=== PATIENT | female | born 1970 | race Caucasian/White ===

== ENCOUNTER 2019-03-08 12:22 | Observation (INO) ==
[2019-03-08] MEDS ORDERED: ASPIRIN PO ONE (12:29)
--- NOTE | 2019-03-08 12:34 | EKG Report ---
Test Performed on : 03/08/2019 12:27:52 PM Test Reason : cp Blood Pressure : / mmHG Vent. Rate : 087 BPM Atrial Rate : 087 BPM P-R Int : 138 ms QRS Dur : 074 ms QT Int : 352 ms P-R-T Axes : 038 003 044 degrees QTc Int : 423 ms Normal sinus rhythm. Minimal voltage criteria for LVH, may be normal variant Cannot rule out Anterior infarct , age undetermined Abnormal ECG No previous ECGs available Unconfirmed Result
[2019-03-08 12:46] LABS: BASO# 0.03 X1000 (0.0-0.2); BASO% 0.4 % (0.0-0.8); EOS# 0.08 X1000 (0.0-0.7); EOS% 1.1 % (0.0-10.0); HEMATOCRIT 40.2 % (37.0-47.0); IMM GRAN# 0.02 X1000 (0.0-0.04); IMM GRAN% 0.3 % (0.0-0.5); LYMPH# 1.52 X1000 (1.2-3.4); LYMPH% 21.7 % (20.5-51.1); MCHC 32.3 g/dL (33-37); MCV 83.6 FL (81-99); MONO# 0.63 X1000 (0.11-0.59); MPV 10.6 FL (7.4-10.4); NEUT# 4.74 X1000 (1.4-6.5); NEUT% 67.5 % (42.2-75.2); PLT 240 X1000 (130-400); RBC 4.81 XMIL (4.2-5.4); RDW 14.2 % (11.5-14.5); WBC 7.02 X1000 (4.8-10.8)
[2019-03-08 12:58] LABS: INR 0.89; PROTIME 12.8 Seconds (11.0-16.0)
--- NOTE | 2019-03-08 12:58 | Diag Imaging Result Doc PS360 ---
EXAM: CHEST-2 VIEWS 03/08/2019 HISTORY: cp TECHNIQUE: PA and lateral chest COMMENT: There is no evidence of acute cardiac or pulmonary disease. There are no previous studies. IMPRESSION: No acute disease. Electronically signed by Shreyas Frazier 03/08/2019 12:56 PM
[2019-03-08 12:59] LABS: PTT 27.5 Seconds (22.3-41.8)
[2019-03-08 13:37] LABS: AGAP 13; ALB/GLOB RATIO 1.6; ALBUMIN 4.3 g/dL (3.5-5.0); ALKALINE PHOSPHATASE 131 U/L (32-104); BUN 14 mg/dL (8-22); CALCIUM 8.8 mg/dL (8.8-10.2); CHLORIDE 107 mmol/L (98-107); CK PROFILE 162 U/L (24-173); COSMO 278; CREATININE 0.9 mg/dL (0.5-0.9); ESTIMATED GFR > 60; GLUCOSE 91 mg/dL (70-104); GOT 15 U/L (10-30); GPT 16 U/L (10-36); SODIUM 139 mmol/L (136-145); TCO2 19 mmol/L (25-35); TOTAL BILIRUBIN 0.22 mg/dL (0.20-1.00)
[2019-03-08] MEDS ORDERED: NITROGLYCERIN TOP ONE (14:31)
--- NOTE | 2019-03-08 14:33 | PROVIDER DOCUMENTATION ---
This chart was entered by Jenise Kruger Scribe, acting as scribe for Jeff Romero MD. HPI-Chest Pain - General Chief Complaint: Chest Pain Stated Complaint: CP/SOB/L ARM PAIN Time Seen by Provider: 03/08/19 12:37 Source: patient, family Allergies/Adverse Reactions: Patient Allergies Allergy/AdvReac Type Severity Reaction Status Date / Time Penicillins Allergy Intermediate RASH Verified 03/08/19 14:31 adhesive Allergy Unknown Unknown Verified 03/08/19 14:31 codeine [Codeine] AdvReac Intermediate VOMITING Verified 03/08/19 14:31 Home Medications: Home Medication List Medication Instructions Recorded Confirmed Last Taken Type Dexlansoprazole [Dexilant] 60 mg PO DAILY 09/03/12 09/03/12 Unknown History Promethazine [Phenergan] 25 mg PO Q6H PRN PRN 09/03/12 09/03/12 Unknown History Vilazodone [Viibryd] 40 mg PO DAILY 09/03/12 09/03/12 Unknown History Bupropion S.r. [Wellbutrin Sr] 150 mg PO BID #60 tablet 09/08/12 Unknown Rx Vilazodone [Viibryd] 40 mg PO DAILY #30 tablet 09/08/12 Unknown Rx - History of Present Illness-CP Nature of Presenting Problem: 48 yowf presents to the ed with c/o chest tightness onset this am which radiates into left arm with left hand tingling. pt had mild nausea this am but denies vomiting. pt noted fatigue and that has been present 1 week. pt on exam is nontoxic in appearance Location: reports: substernal Chest Pain Radiation: reports: arms (left) Quality of Pain: reports: fullness, tightness Severity in ED: mild Onset/Duration: this morning Timing: still present, intermittent Context/Activities at Onset: reports: light activity Modifying Factors: improves with: nothing Associated Symptoms: reports: fatigue, nausea. denies: abdominal pain, diaphoresis, dizziness, vomiting Nitro Today/Relief: no nitro taken today Aspirin Treatment Today: 325 mg x 1, provided by ED Prior Chest Pain/Cardiac Workup: reports: no prior chest pain Similar Symptoms Previously?: No Recently Seen Here or By Another Healthcare Provider: No Review of Systems - Adult - REVIEW OF SYSTEMS - ADULT Constitutional: reports: see HPI, fatique. denies: chills, fever Eyes: reports: no symptoms reported Ears, Nose, Mouth & Throat: reports: no symptoms reported Cardiovascular: reports: see HPI, chest pain. denies: edema, palpitations, syncope Respiratory: reports: no symptoms reported Gastrointestinal: reports: see HPI, nausea. denies: abdominal pain, diarrhea, vomiting Genitourinary: reports: no symptoms reported Musculoskeletal: reports: see HPI, other (arm pain left). denies: back pain, neck pain Integumentary: reports: no symptoms reported Neurological: reports: see HPI, paresthesia (left hand). denies: diz ziness/vertigo, headache/migraines, seizure, slurred speech, syncope, tremors Psychiatric: reports: no symptoms reported Endocrine: reports: no symptoms reported Hematologic/Lymphatic: reports: no symptoms reported Allergic/Immunologic: reports: no symptoms reported All Other Systems: Reviewed and Negative Past History - Adult - PAST MEDICAL HISTORY-ADULT Review of Records: reports: Old Records Reviewed, Nursing Assessment Review, Medications Reviewed, Social history reviewed & non-contributory. Major Childhood Illnesses: reports: denies history Cardiovascular: reports: denies history Respiratory: reports: sleep apnea Gastrointestinal: reports: GERD Obstetrical/Gynecological: reports: denies history Genitourinary: reports: denies history Musculoskeletal: reports: denies history Neurological: reports: denies history Psychiatric: reports: anxiety, bipolar, depression Endocrine/Immune: reports: denies history Other Conditions: reports: denies history - PRIOR SURGERIES/PROCEDURES Surgical/Procedure History: reports: cholecystectomy, gastric bypass, other (cyst removed) - IMMUNIZATION STATUS Childhood Immunizations: See Nurse Assessment Flu Vaccine: See Nurse Assessment - FAMILY HISTORY Family History: reviewed, not pertinent - SOCIAL HISTORY Smoking: denies Substance Use: denies Alcohol Use Frequency: never Living Situation: family Physical Exam-General - PHYSICAL EXAM-ADULT Initial Vital Signs Reviewed: Yes - CONSTITUTIONAL General Appearance: appears well, alert, no apparent distress, obese - EYES Eyes: PERRL/EOMI, pink conjunctivae - HEAD, EARS, NOSE, MOUTH & THROAT HENMT: moist mucous membranes, normal ENT inspection - NECK Neck: non-tender, full range of motion, supple, normal inspection - RESPIRATORY Respiratory: chest non-tender, lungs clear, normal breath sounds, no pleuratic chest pain, no respiratory distress - CARDIOVASCULAR Cardiovascular: normal peripheral pulses, regular rate, rhythm - CHEST (BREASTS) Chest/Breast: no tenderness - GASTROINTESTINAL (ABDOMEN) Abdominal Exam: normal bowel sounds, non tender, soft - LYMPHATIC Lymphatic: no adenopathy - MUSCULOSKELETAL Back Exam: normal inspection, no CVA tenderness, no vertebral tenderness Extremity: normal range of motion, non-tender, normal gait, normal inspection, no pedal edema, no calf tenderness, normal capillary refill, pelvis stable - SKIN Integumentary: normal color, normal turgor, warm/dry - NEUROLOGIC Neurologic: grossly normal, no motor/sensory deficits - PSYCHIATRIC Psych/Mental Status: normal mood/affect, normal thought content, normal thought process, oriented x 3 - HEART Score HEART Score: History: Slightly Suspicious HEART Score: ECG: Non-Specific Repolarization Disturbance/LBBB/PM HEART Score: Age: 45-65 Years HEART Score: Risk Factors for Atherosclerotic Disease: 1 or 2 Risk Factors HEART Score: Troponin: < or = Normal Limit Total HEART Score:: 3 Progress - PLAN OF CARE/RESULTS Progress/Plan/Lab Results: Vital Signs - 8 hr 03/08/19 12:24 Temperature 98.4 F Pulse Rate 94 H Respiratory Rate 20 Blood Pressure 150/102 O2 Sat by Pulse Oximetry 100 Laboratory Results - last 24 hr 03/08/19 03/08/19 03/08/19 12:39 12:39 12:39 WBC 7.02 RBC 4.81 Hgb 13.0 Hct 40.2 MCV 83.6 MCH 27.0 MCHC 32.3 L RDW Std Deviation 14.2 Plt Count 240 MPV 10.6 H Immature Gran % (Auto) 0.3 Neut % (Auto) 67.5 Lymph % (Auto) 21.7 [place] % (Auto) 9.0 Eos % (Auto) 1.1 Baso % (Auto) 0.4 Immature Gran # (Auto) 0.02 Neut # (Auto) 4.74 Lymph # (Auto) 1.52 [place] # (Auto) 0.63 H Eos # (Auto) 0.08 Baso # (Auto) 0.03 PT INR PTT (Actin FS) Sodium 139 Potassium 4.0 Chloride 107 Carbon Dioxide 19 L Anion Gap 13 BUN 14 Creatinine 0.9 Estimated GFR/1.73 m2 > 60 BUN/Creatinine Ratio 16 Glucose 91 Calculated Osmolality 278 Calcium 8.8 Total Bilirubin 0.22 AST 15 ALT 16 Alkaline Phosphatase 131 H Creatine Kinase 162 Troponin T Oir-C-Iaxgiebhxhq Pept 58 Total Protein 7.0 Albumin 4.3 Globulin 2.7 Albumin/Globulin Ratio 1.6 03/08/19 03/08/19 12:39 12:39 WBC RBC Hgb Hct MCV MCH MCHC RDW Std Deviation Plt Count MPV Immature Gran % (Auto) Neut % (Auto) Lymph % (Auto) [place] % (Auto) Eos % (Auto) Baso % (Auto) Immature Gran # (Auto) Neut # (Auto) Lymph # (Auto) [place] # (Auto) Eos # (Auto) Baso # (Auto) PT 12.8 INR 0.89 PTT (Actin FS) 27.5 Sodium Potassium Chloride Carbon Dioxide Anion Gap BUN Creatinine Estimated GFR/1.73 m2 BUN/Creatinine Ratio Glucose Calculated Osmolality Calcium Total Bilirubin AST ALT Alkaline Phosphatase Creatine Kinase Troponin T < 0.010 Zyb-P-Fwgstaruwys Pept Total Protein Albumin Globulin Albumin/Globulin Ratio Orders Category Date Time Status Cardiac Monitoring DIRECTED Care 03/08/19 12:30 Active Oxygen Therapy- ED Nursing DIRECTED Care 03/08/19 12:30 Active Saline Loc NOW Care 03/08/19 12:30 Active CHEST-2 VIEWS [RAD] Stat Exams 03/08/19 12:30 Completed CBC WITH ELECTRONIC DIFF [HEME] Stat Lab 03/08/19 12:39 Completed CK PROFILE [SP CHEM] Stat Lab 03/08/19 12:39 Completed COMPREHENSIVE METABOLIC PANEL [CHEM] Stat Lab 03/08/19 12:39 Completed PRO B-NATRIURETIC PEPTIDE Stat Lab 03/08/19 12:39 Completed PROTIME WITH INR [COAG] Stat Lab 03/08/19 12:39 Completed PTT [COAG] Stat Lab 03/08/19 12:39 Completed TROPONIN T Stat Lab 03/08/19 12:39 Completed Aspirin Med 03/08/19 12:29 Discontinued 325 mg PO NOW ONE Nitroglycerin Med 03/08/19 14:31 Once 1 inch TOP NOW ONE CP/SOB/Palp >45 yrs of Age Stat Oth 03/08/19 12:29 Ordered EKG [EKG] Stat Ther 03/08/19 12:30 Draft Due to sx of fatigue, not feeling well, which can be harbingers of ACS in females, will admit Result Diagrams: 03/08/19 12:39 07/02/19 12:39 - REASSESSMENT Reassessment #1 Time Reassessed: 14:19 (pt is resting in bed) Status: improving - EKG 1 Time of EKG reading by physician:: 12:27 EKG Read and Signed by:: Jeff Romero EKG Interpretation (*Must complete 3 of following elements*): Abnormal Rate: 87 Rhythm: nsr QRS: poor R wave progression (anterior), LVH [place] Interval: normal ST Wave: normal Comments: cannot rule out anterior infarct, age undeterined - XRAY 1 XRAY: Bilateral XRAY Study: Chest Impression: See EMR Report (EXAM: CHEST-2 VIEWS 03/08/2019 HISTORY: cp TECHNIQUE: PA and lateral chest COMMENT: There is no evidence of acute cardiac or pulmonary disease. There are no previous studies. IMPRESSION: No acute disease. Electronically signed by Shreyas Frazier 03/08/2019 12:56 PM 03/08/19 1256 Interpreting Physician: Shreyas Frazier MD Dictated Date/Time: 03/08/19 1255 cc: Jeff Romero MD; Carolyn Roca MD) - CONSULTS/PCP/HOSPITALIST Notification #1 *Consult/PCP/Hospitalist*: hospitalist Time Discussed: 14:19 Consult Disposition: Admit Departure - Departure Date of Disposition Decision: 03/08/19 Time of Disposition Decision: 14:20 DIAGNOSIS: Fatigue Chest pain Qualifiers: Chest pain type: unspecified Qualified Code(s): R07.9 - Chest pain, unspecified Disposition: ADMITTED INPATIENT 09 Certified Medical Emergency: Emergent Condition: Good Referrals and Follow-Ups: Carolyn Roca MD [Primary Care Provider] - - Critical Care Note This patient required my direct & personal management of CC.: No Attestation - Physician/ LADI Attestation Patient care was provided by Advanced Practice Provider:: No The physician spent face to face time with patient:: Yes Advanced Practice Provider documentation review:: Supervising physician onsite and consulted in the evaluation and care of this patient. The physician did have a face to face encounter with the patient. This chart was documented by the indicated scribe, (Jenise Kruger Scribe) an d accurately reflects the services I performed and decisions made by me, Jeff Romero MD, as attested by the provider's signature.
[2019-03-08] MEDS ORDERED: NITROGLYCERIN SL PRN (15:08)
[2019-03-08] MEDS ORDERED: ZOFRAN IV PRN (15:08)
[2019-03-08] MEDS ORDERED: TYLENOL PO PRN (15:08)
[2019-03-08] MEDS ORDERED: PHENERGAN PO PRN (15:08)
[2019-03-08] MEDS ORDERED: MORPHINE IV PRN (15:08)
--- NOTE | 2019-03-08 15:44 | HISTORY AND PHYSICAL ---
PRIMARY CARE PROVIDER: Dr. Carolyn Roca. CHIEF COMPLAINT: Chest pain. HISTORY OF PRESENT ILLNESS: Ms Binta Schaffer is a 48-year-old female with a medical history of bipolar disorder primarily anxiety, migraines, sleep apnea where she wears CPAP at night, GERD. Also states she has chronic tingling in bilateral hands with neck spasms presents here with complaints of chest pain. She states she has been having nausea since yesterday, fatigue for a week. Her heart felt funny for the last 2 days with the occasional flutter sensation and woke up this morning with a constant chest pressure of about 6/10 since about 7 o'clock this morning. She has had a little bit of dizziness, left arm has felt numb and it has been constant wax and wanes with the day. Will admit her. She is a nonsmoker. She is mildly obese with a history of a gastric bypass. She does have a history of GERD as well. Will do a stress test in the morning. I was unable to reproduce the chest pain with palpation. PAST MEDICAL HISTORY: 1. Bipolar disorder with anxiety. 2. Migraines. 3. Obstructive sleep apnea wears CPAP. 4. GERD. 5. Chronic tingle of the bilateral hands. 6. Neck spasms. SURGICAL HISTORY: 1. Gastric bypass surgery in 2007. 2. Bilateral tubal ligation. 3. Cholecystectomy. 4. Uterine ablation. 5. Cyst on her back removed about the size of a baseball. SOCIAL HISTORY: Denies tobacco, alcohol or illicit drug use. She is lives at home. 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 FAMILY HISTORY: No medical conditions on her mother side that she could recall. On her father's side her father had bone cancer, her grandmother had a pacemaker. ALLERGIES: Rash from penicillins. HOME MEDICATIONS: 1. Latuda 80 mg p.o. nightly. 2. Trazodone HCL 100 mg p.o. nightly. 3. Tizanidine 4 mg p.o. every 8 hours. 4. Adderall 10 mg p.o. daily at 3 o'clock. 5. Adderall 20 mg p.o. daily so she takes 20 mg in the morning and 10 mg in afternoon. 6. Buspirone 20 mg p.o. twice daily. 7. Lamotrigine 150 mg p.o. twice daily. 8. Linzess 72 mcg p.o. daily. 9. Ativan 1 mg p.o. twice daily. 10. Phenergan 25 mg p.o. every 6 hours p.r.n. 11. Protonix 40 mg p.o. daily. 12. Rizatriptan 10 mg p.o. daily. 13. Trintellix 10 mg p.o. daily. 14. Topiramate 100 mg p.o. daily. REVIEW OF SYSTEMS: Fourteen point review of systems are complete and all were negative except those mentioned above HPI. PHYSICAL EXAMINATION: VITAL SIGNS: Temperature 98.4 degrees, heart rate 94, respiratory rate 20, blood pressure 150/102, O2 saturation 100% on room air, 5 feet 6 inches tall, 213 pounds with BMI 34.4. GENERAL: Ms. Binta Schaffer is a 48-year-old female. She is in no acute distress. She is able answer questions appropriately. HEENT: Atraumatic, normocephalic. Pupils equal, round, reactive to light. Extraocular movements intact. Mucous membranes are dry. NECK: Trachea midline. CARDIOVASCULAR: S1, S2. Regular rate and rhythm. No rubs, gallops, murmurs. No lower extremity edema. +2 dorsalis and radial pulses. Negative JVD or carotid bruits. PULMONARY: Clear to auscultate bilateral breath sounds. No accessory muscle use or work of breathing noted. GI: Soft, nontender, nondistended. Positive bowel sounds x4. EXTREMITIES: Moves all extremities equally, full range of motion. NEURO: A and O x3, follows commands. Sensory is intact. SKIN: Warm, dry, intact. LABORATORY DATA: White blood cells 7000, hemoglobin 13, hematocrit 40, platelet count 240,000, INR 0.89, PTT is 27.5. Sodium 139, potassium 4.0, BUN 14, creatinine 0.9, glucose 91, calcium 8.8, bilirubin 0.22, AST 15, ALT 16, CK 162, troponin less than 0.01, ProBNP 58, albumin 4.3. IMAGING: Chest x-ray no acute disease. EKG normal sinus rhythm, rate 87, QTc is 423, no ST changes. ASSESSMENT AND PLAN: 1. Atypical chest pain with nausea. She will be held NPO after midnight. Will do a stress test in the morning, serial cardiac enzymes. Only obvious risk factor is her weight she is a little overweight. Otherwise there is no history of diabetes or smoking or family history. We will also check her echocardiogram. 2. Bipolar disorder with anxiety. Will continue all of those home medications but will hold the Adderall as it sometimes can induce more anxiety and sometimes chest pain. 3. Gastroesophageal reflux disease. Continue with her oral Protonix, Phenergan for nausea. 4. Obstructive sleep apnea wears CPAP at night. Was instructed to bring it for tonight. 5. Deep venous thrombosis prophylaxis Lovenox. Dictated by GOKUL Scott for Shiva Lara MD cc: GOKUL Scott MD I have seen and examined Ms Schaffer today. Daughter was at the bedside. Ms Schaffer presents with atypical chest pain. I have also reviewed her labs and imaging studies. So far EKG and initial troponin are normal. I agree with the above HPI and the plan reflect my opinion discussed with the LONGWALL HEADGATE OPERATOR. THAD
[2019-03-08] MEDS ORDERED: LATUDA PO SCH (21:00)
[2019-03-08] MEDS ORDERED: DESYREL PO SCH (21:00)
[2019-03-08] MEDS: ATIVAN PO SCH (21:51)
[2019-03-08] MEDS: ZANAFLEX PO SCH (21:52)
[2019-03-08] MEDS: BUSPAR PO SCH (21:52)
[2019-03-08] MEDS: LAMICTAL PO SCH (21:52)
[2019-03-09] MEDS: ZANAFLEX PO SCH ×2 (05:18→14:23)
[2019-03-09] MEDS ORDERED: PROTONIX PO SCH (07:00)
--- NOTE | 2019-03-09 08:05 | EKG Report ---
Test Performed on : 03/09/2019 06:52:25 AM Test Reason : chest pain Blood Pressure : / mmHG Vent. Rate : 078 BPM Atrial Rate : 078 BPM P-R Int : 144 ms QRS Dur : 080 ms QT Int : 392 ms P-R-T Axes : 056 036 051 degrees QTc Int : 446 ms Normal sinus rhythm. Normal ECG When compared with ECG of 08-MAR-2019 12:27, (Unconfirmed) No significant change was found Confirmed by Tae Pickard MD ([id number]) on 03/09/2019 6:04:33 PM
[2019-03-09 08:14] LABS: INR 0.91
[2019-03-09 08:15] LABS: PTT 29.2 Seconds (22.3-41.8)
[2019-03-09 08:35] LABS: AGAP 9; ALB/GLOB RATIO 1.8; ALBUMIN 3.8 g/dL (3.5-5.0); ALKALINE PHOSPHATASE 119 U/L (32-104); BUN 15 mg/dL (8-22); CALCIUM 8.3 mg/dL (8.8-10.2); CHLORIDE 108 mmol/L (98-107); CHOLESTEROL 122 mg/dL (0-200); COSMO 282; CREATININE 0.9 mg/dL (0.5-0.9); ESTIMATED GFR > 60; GLUCOSE 97 mg/dL (70-104); GOT 12 U/L (10-30); GPT 13 U/L (10-36); HDL 39 mg/dL (45-65); LDL 53 mg/dL; MAGNESIUM 2.1 mg/dL (1.5-2.7); POTASSIUM 3.9 mmol/L (3.5-5.1); SODIUM 141 mmol/L (136-145); TCO2 24 mmol/L (25-35); TOTAL BILIRUBIN 0.21 mg/dL (0.20-1.00); TOTAL PROTEIN 5.9 g/dL (6.3-8.3); TRIGLYCERIDES 148 mg/dL (35-135); VLDL 30 mg/dL
[2019-03-09 08:38] LABS: BASO# 0.01 X1000 (0.0-0.2); BASO% 0.1 % (0.0-0.8); EOS# 0.11 X1000 (0.0-0.7); EOS% 1.4 % (0.0-10.0); HEMATOCRIT 36.6 % (37.0-47.0); HEMOGLOBIN 11.6 g/dL (12.0-16.0); IMM GRAN# 0.03 X1000 (0.0-0.04); IMM GRAN% 0.4 % (0.0-0.5); LYMPH% 15.3 % (20.5-51.1); MCH 26.9 PG (27-31); MCHC 31.7 g/dL (33-37); MCV 84.7 FL (81-99); MONO# 0.57 X1000 (0.11-0.59); MONO% 7.3 % (1.7-9.3); MPV 10.9 FL (7.4-10.4); NEUT# 5.93 X1000 (1.4-6.5); NEUT% 75.5 % (42.2-75.2); PLT 234 X1000 (130-400); RBC 4.32 XMIL (4.2-5.4); RDW 14.2 % (11.5-14.5); WBC 7.85 X1000 (4.8-10.8)
[2019-03-09] MEDS ORDERED: LINZESS PO SCH (09:00)
[2019-03-09] MEDS ORDERED: LOVENOX SUBQ SCH (09:00)
[2019-03-09] MEDS ORDERED: PATIENT'S OWN MED PO SCH (09:00)
[2019-03-09] MEDS ORDERED: TRINTELLIX PO SCH (09:00)
[2019-03-09] MEDS ORDERED: MAXALT PO SCH (09:00)
[2019-03-09] MEDS ORDERED: ASPIRIN EC PO SCH (09:00)
[2019-03-09] MEDS ORDERED: LEXISCAN ONE (09:09)
[2019-03-09] MEDS: LAMICTAL PO SCH (10:51)
[2019-03-09] MEDS: ATIVAN PO SCH (10:52)
[2019-03-09] MEDS: BUSPAR PO SCH (10:53)
--- NOTE | 2019-03-09 11:17 | PROGRESS NOTE ---
DATE: 03/09/2019 SUBJECTIVE: This morning Ms. Schaffer referred to be feeling a lot better, and she said she did not have any more chest pain. OBJECTIVE: Vital signs: Blood pressure 115/70, pulse 72, respirations 20, and temperature 98.1 degrees. The patient was saturating 100% on room air. General: Ms. Schaffer is a 48-year-old female. She was in bed in no distress. Mucosa is pink and moist. Anicteric. Acyanotic. Neck: Supple. Chest: Good air entry bilaterally. There was no crepitations. No rhonchi. Cardiovascular: Regular rate and rhythm. No murmurs, no rubs, no gallops. Abdomen: Soft. Nontender. Bowel sounds present. Extremities: No pedal edema. PLUG OVERWRAP MACHINE TENDER: Patient was awake, alert, and oriented. There is no focal neurological deficit. LABORATORY DATA: CBC is within normal range. Chemistry is also normal. The patient's troponin's have trended 4 times and is all negative. EKG this morning shows normal sinus rhythm with a rate of about 78. No ST-segment or T-wave abnormality. Normal QT interval. ASSESSMENT: 1. Atypical chest pain to rule out coronary artery disease. A stress test has been ordered as well as echo. Pending the result, if they are negative, patient will be discharged and will be treated for noncardiac chest pain. 2. History of bipolar disorder. 3. GERD. We will continue with PPI. 4. History of obstructive sleep apnea. Patient uses CPAP at night. Ms. Schaffer is a possible discharge today if her stress and echo are normal. cc: Shiva Lara MD
[2019-03-09 15:41] VITALS: BP 113/59
--- NOTE | 2019-03-09 16:25 | Diag Imaging Result Document ---
PROCEDURE NAME: MYOCARDIAL PERF SCAN, STR/REST - 03/09/2019 STUDY: Rest/stress walking Lexiscan myocardial perfusion study. REQUESTING DOCTOR: Hospitalist service. INDICATION: Chest pain. DESCRIPTION: The patient came into the nuclear laboratory, received a rest injection of technetium 99 sestamibi 16 mCi. Multiple tomographic views of the cardiac structures were obtained at rest. Subsequently, the patient underwent walking Lexiscan protocol. 0.5 mg of Lexiscan were infused. At peak infusion, injected with technetium 99 sestamibi 43.5 mCi. Multiple tomographic views of the cardiac structures were obtained following the completion of the protocol. SUMMARY OF THE ELECTROCARDIOGRAPHIC PORTION OF THE STUDY: Resting ECG shows sinus rhythm, rate 73 beats per minute, resting blood pressure 124/81. Resting ECG shows early transition, question of inferior scar. During the protocol, the heart rate increased to 113 beats per minute. Blood pressure went down to 112/64. Peak infusion ECG shows sinus tachycardia without any ischemic changes. The patient reported no chest pain, shortness of breath, or palpitations. Subsequently, the patient's heart rate and blood pressure returned back to their baseline. In summary, electrocardiographic response to a walking Lexiscan protocol is normal. SUMMARY OF THE MYOCARDIAL PERFUSION PORTION OF THE STUDY: Poststress tomographic views of the left ventricle showed normal homogeneous distribution of radiotracer throughout the entire left ventricular myocardium. There is no evidence of any postexercise defect. The rest images looked normal. Polar plots revealed the same. No evidence of any inducible ischemia nor myocardial scar. Gated SPECT shows normal left ventricular systolic function. Ejection fraction of 66%. No wall motion abnormality is noted. The lung/heart ratio is normal. TID is elevated at 1.35, although the accuracy of that estimation appears to be difficult because of poor counts on the resting study. SUMMARY: This study shows: 1. Normal electrocardiographic response to a walking Lexiscan protocol. 2. Normal poststress myocardial perfusion scan. 3. Normal left ventricular systolic function, ejection fraction of 66% with normal ventricular volumes. No wall motion abnormality. This study represents a low risk for ischemic events. cc: MD Kathy Purcell CRNP
--- NOTE | 2019-03-09 17:50 | ECHO REPORT ---
ORDER DATE: 03/08/2019 INTERPRETING PHYSICIAN: Chandan Charlton MD INDICATION: A 48-year-old female with chest pain. M-MODE MEASUREMENTS: Left ventricle end diastole: 5.0 cm. Left ventricle end systole: 2.8 cm. Posterior wall: 0.9 cm. Interventricular septum: 0.9 cm. Left atrium: 2.7 cm. Aortic root diameter: 3.6 cm. SUMMARY OF 2-DIMENSIONAL IMAGIN. Left ventricular function is normal. Ejection fraction is estimated at 65%. No wall motion abnormality is noted. 2. The right ventricle is normal. 3. The tricuspid valve shows a mild degree of regurgitation. 4. The inferior vena cava was not visualized. 5. Pulmonary artery pressure is somewhere in the range of 35 to 40 mmHg. 6. The pulmonic valve appears to be grossly normal. 7. The aortic valve has three cusps and they open normally. Color flow mapping is unremarkable. 8. The mitral valve shows a mild degree of regurgitation. 9. Pulsed wave Doppler of mitral inflow is normal. 10.Tissue Doppler of septal and lateral mitral annulus averages 9 cm. 11.There is no diastolic dysfunction. 12.Pulmonary venous flow is normal. 13.The left atrium, right atrium, and right side chamber appears to be normal. 14.There is no pericardial effusion and no sign of thrombus. Clinical correlation is recommended. cc: MD Kathy Purcell CRNP
--- NOTE | 2019-03-10 06:41 | DISCHARGE SUMMARY ---
ADMISSION DATE: 03/08/2019 DISCHARGE DATE: 03/09/2019 DISPOSITION: Home. FOLLOW UP: Primary Care Physician Dr. Chanelle Leon PRESENTING COMPLAINT: Chest pain. CONSULTATIONS DURING ADMISSION: None. INVASIVE PROCEDURES DURING ADMISSION: None. IMAGES STUDIES OF SIGNIFICANCE: 1. Chest x-ray was done initially which shows no acute disease. 2. Echocardiogram showed an ejection fraction of 65%. No wall motion abnormality and no valvulopathy. 3. A stress test showed normal stress. ADMISSION DIAGNOSES: 1. Atypical chest pain. 2. Bipolar disorder with anxiety. 3. Obstructive sleep apnea. DIAGNOSES AT TIME OF DISCHARGE: 1. Atypical chest pain with normal cardiac workup, presumed to be noncardiac in origin. 2. Bipolar disorder, stable. 3. Gastroesophageal reflux disease. 4. History of obstructive sleep apnea. 5. Polypharmacy with multiple psychotropic medications. 6. Migraine headaches. DISCHARGE MEDICATIONS: 1. Buspirone 20 mg b.i.d. 2. Adderall 20 mg p.o. daily. 3. Linzess 72 mcg p.o. daily. 4. Lorazepam 1 mg b.i.d. 5. Latuda 80 mg p.o. at bedtime. 6. Trintellix 10 mg p.o. daily. 7. Pantoprazole 40 mg p.o. daily. 8. Tizanidine 4 mg p.o. q.8h. 9. Topiramate 100 mg p.o. daily. 10. Lamotrigine 150 b.i.d. 11. Trazodone 100 mg p.o. at bedtime. 12. Rizatriptan 10 mg p.o. daily. 13. Fioricet 1 tablet q.4 hours. PRESENTING COMPLAINT: Chest pain. HISTORY OF PRESENTING COMPLAINT: Ms. Schaffer is a 48-year-old female who has history of bipolar disorder and migraine on multiple psychotropic medications, who came in with retrosternal chest pain associated with nausea, and was radiating to the left arm. Because of the clinical picture, patient was admitted for coronary artery disease rule out. HOSPITAL COURSE: Ms. Schaffer was admitted to the medical floor on telemetry. She did pretty well, and her chest pain completely resolved. She was underwent echo stress test which came back negative 3 times. Troponin's were also done which was negative, and there was no any EKG changes. Ms. Schaffer's chest pain resolved during the hospital course. We think it is noncardiac. The patient has a history of GERD, and it is very possible that this was what was causing her pain. She has been advised to follow up with her primary care doctor and if the symptoms persist to get a GI evaluation. On the day of discharge, Ms Schaffer referred to be feeling well. Her discharge vitals, blood pressure was 113/59, pulse 72, respirations 20, and temperature 98.6 degrees. Patient was stable for discharge. All the discharge instructions were discussed with her, and she voiced understanding. TIME SPENT FOR DISCHARGE: 32 minutes. cc: MD Dr. Chanelle Arzola
== END 2019-03-09 19:05 | disposition home or self-care (01) ==
LOC: ED 12:22 → 3N 12:22
PROVIDERS: ATTEND Internal Medicine
CPT/HCPCS: 71020; 71046; 78452; 80053; 80061; 82550; 83735; 83880; 84484; 85025; 85610; 85730; 93005; 93010; 93017; 93306; 94761; A9270; A9500; J1650; J2405; J2785